=== PATIENT | male | born 2000 | race Caucasian/White ===

== ENCOUNTER 2023-02-11 20:26 | Emergency (ER) | payer OTHER ==
[2023-02-11] MEDS ORDERED: Ketorolac Tromethamine 30 MG/ML VIAL ONE (21:04)
== END 2023-02-11 22:33 | disposition home or self-care (01) ==
LOC: CSHERS 20:26
DX: S80.212A Abrasion, left knee, initial encounter (principal); M25.511 Pain in right shoulder; J45.909 Unspecified asthma, uncomplicated; W18.40XA Slipping, tripping and stumbling without falling, unspecified, initial encounter; Y93.02 Activity, running
CPT/HCPCS: 96372; J1885